=== PATIENT | female | born 1980 | race Caucasian/White ===

== ENCOUNTER 2016-05-02 20:39 | Emergency (ER) | payer OTHER ==
[2016-05-02] MEDS ORDERED: NORCO 5/325MG TABLET (BULK) As Ordered ONE (21:59)
--- NOTE | 2016-05-02 22:08 | EDDOCDS ---
Physician Documentation [facility] Name: Melita Keller Age: 36 yrs Sex: Female : 1980 Arrival Date: 05/02/2016 Time: 20:39 Bed TR1 Private MD: Odalis Simpson NP Disposition: 05/02/16 21:51 Discharged to Home/Self Care. Impression: Sprain of carpal joint of left wrist. - Condition is Stable. - Discharge Instructions: Wrist Pain, Wrist Splint. - Medication Reconciliation, Local Pharmacy Hours form. - Follow up: Darrell López; When: Call to arrange an appointment; Reason: Recheck today's complaints, Continuance of care. - Problem is new. - Symptoms are unchanged. Historical: - Allergies: no known allergies; - Home Meds: 1. Neprazol - PMHx: none; - PSHx: ovarian cyst removed; Gastric Bypass; - Social history: Smoking status: Patient states was never smoker of tobacco. No barriers to communication noted, The patient speaks fluent Estonian. - Family history: Not pertinent. - : The pt / caregiver states he / she is not on anticoagulants. Home medication list is obtained from the patient. - Exposure Risk Screening:: None identified. Vital Signs: 05/02 20:41 BP 132 / 60; Pulse 64; Resp 18; Temp 98.8; Pulse Ox 100% ; Weight 80.74 kg / 178 lbs; elp Height 5 ft. 7 in. (170.18 cm); Pain 8/10; 20:41 Body Mass Index 27.88 (80.74 kg, 170.18 cm) elp MDM: 21:06 Hand, Complete: please INCLUDE NAVICULAR VIEW Ordered. EDMS 21:51 HYDROcodone-acetaminophen 4 pack- 5 mg-325 mg 1 packets PO Per package directions; mo1 Dispense with patient. 1 po q4h prn for pain ordered. 21:56 Splint Affected Extremity ordered. mo1 Administered Medications: 22:05 Drug: HYDROcodone-acetaminophen 4 pack- 1 packets [hydrocodone 5 mg-acetaminophen 325 ld5 mg tablet (1 tabs)] {Co-Signature: [id number] (Soraya Bell RN).} Route: PO; 22:05 Follow up: Response: Med's dispensed home ld5 Signatures: Dispatcher [employer] EDMS Soosairaj,Glenys,RN RN rs3 Ita Long RN RN ld5 Jason Daily PA PA mo1 Soraya Bell RN ms18 MTDD
--- NOTE | 2016-05-02 22:08 | EDDOCDS ---
Nurse's Notes [facility] Name: Melita Keller Age: 36 yrs Sex: Female : 1980 Arrival Date: 05/02/2016 Time: 20:39 Bed TR1 Private MD: Odalis Simpson NP Diagnosis: Sprain of carpal joint of left wrist Presentation: 05/02 20:44 Presenting complaint: Patient states: Fell on ice yesterday injured L hand. Took rs3 Tylenol/applied ice.. pain radiating to fingers and forearm. Adult Sepsis Screening: The patient does not have new or worsening altered mentation. Patient's respiratory rate is less than 22. Systolic blood pressure is greater than 100. Patient has a qSOFA score of 0- Negative Sepsis Screen. Suicide/Homicide risk assessment- the patient denies having any suicidal and/or homicidal ideations and does not present with any other emotional, behavioral or mental health complaints. Status: Patient is not a claims service adjustor or dependent. Transition of care: patient was not received from another setting of care. 20:44 Acuity: KB Level 4 rs3 20:44 Method Of Arrival: Walkin/Carried/Asstd rs3 Triage Assessment: 20:47 General: Appears in no apparent distress. Pain: Location: left hand. Pt Declines HIV rs3 testing. Musculoskeletal: Reports Pain is 5 out of 10 on a pain scale. Historical: - Allergies: no known allergies; - Home Meds: 1. Neprazol - PMHx: none; - PSHx: ovarian cyst removed; Gastric Bypass; - Social history: Smoking status: Patient states was never smoker of tobacco. No barriers to communication noted, The patient speaks fluent Turkmen. - Family history: Not pertinent. - : The pt / caregiver states he / she is not on anticoagulants. Home medication list is obtained from the patient. - Exposure Risk Screening:: None identified. Screenin:05 Screening information is obtained from the patient. Fall risk: No risks identified. ld5 Assistance ADL's: requires no assistance with activities of daily living. Abuse/DV Screen: The patient / caregiver reports he/she is: not in a situation that causes fear, pain or injury. Nutritional screening: No deficits noted. Advance Directives: There is no active DNR order. home support is adequate. Assessment: 22:05 General: Appears in no apparent distress, Behavior is appropriate for age, cooperative, ld5 pleasant. Pain: Location: left hand. Neurological: Level of Consciousness is awake, alert. Respiratory: Airway is patent Respiratory effort is even, unlabored. Musculoskeletal: Range of motion intact in all extremities. Reports pain in left hand. Vital Signs: 20:41 BP 132 / 60; Pulse 64; Resp 18; Temp 98.8; Pulse Ox 100% ; Weight 80.74 kg; Height 5 elp ft. 7 in. (170.18 cm); Pain 8/10; 20:41 Body Mass Index 27.88 (80.74 kg, 170.18 cm) elp Vitals: 20:41 Log In Time: May 02, 2016 at 20:35. elp ED Course: 20:40 Patient visited by Dimple Hurst PCA. elp 20:40 Patient moved to Waiting elp 20:41 Odalis Simpson is Private Physician. elp 20:42 Patient visited by Dimple Hurst PCA. elp 20:42 Patient moved to Pre RCE elp 20:45 Triage Initiated rs3 20:48 Patient moved to I2 / M2 rs3 20:58 Jason Daily PA is PHCP. mo1 20:58 Shaqulile Paige DO is Attending Physician. mo1 21:05 Patient visited by Jason Daily PA. mo1 21:51 Darrell López is Referral Physician. mo1 21:57 Velcro wrist splint applied to left wrist. ct3 21:58 Patient visited by Mabel Day PCA. ct3 22:05 The patient / caregiver is instructed regarding the plan of care and ED course. Patient ld5 has correct armband on for positive identification. 22:05 No IV's were initiated during this patient's visit. No procedures done that require ld5 assistance. Velcro wrist splint applied to left wrist. Patient with positive distal sensation and brisk distal capillary refill after application. 22:07 Patient visited by Ita Long RN. ld5 22:07 Patient moved to TR1 ajs Administered Medications: 22:05 Drug: HYDROcodone-acetaminophen 4 pack- 1 packets [hydrocodone 5 mg-acetaminophen 325 ld5 mg tablet (1 tabs)] {Co-Signature: [id number] (Soraya Bell RN).} Route: PO; 22:05 Follow up: Response: Med's dispensed home ld5 Order Results: There are currently no results for this order. Outcome: 21:51 Discharge ordered by Provider. mo1 22:05 Discharge Assessment: Patient awake, alert and oriented x 3. No cognitive and/or ld5 functional deficits noted. Patient verbalized understanding of disposition instructions. patient administered narcotics - no. The following High Risk Discharge criteria are identified: None. Discharged to home ambulatory. Condition: stable. Discharge instructions given to patient, Instructed on discharge instructions, follow up and referral plans. medication usage, no driving heavy equipment, Demonstrated understanding of instructions, medications, Pt was receptive of discharge instructions/ teaching. No special radiology studies were completed. Property :Personal belongings accompany Pt. 22:07 Patient left the ED. ld5 Signatures: Glenys Schwartz,RN RN rs3 Ita Long RN RN ld5 Mabel Day, MIXER SLAGMAN MIXER SLAGMAN ct3 Lisa Hatch Michael, PA PA mo1 Dimple Hurst, MIXER SLAGMAN MIXER SLAGMAN elp Soraya Bell RN ms18 Corrections: (The following items were deleted from the chart) 20:42 20:41 BP 132 / 60; Pulse 64bpm; Resp 18bpm; elp elp MTDD
--- NOTE | 2016-05-03 01:00 | REP ---
Clinical: Trauma. Technique: AP, lateral, bilateral oblique views of the left hand with scaphoid view . Findings: The osseous structures and joint spaces are intact and normal. There is no evidence for acute fracture or dislocation. Surrounding soft tissues are unremarkable. No subcutaneous emphysema or radiodense foreign body. Impression: Normal examination. No acute fracture or dislocation. Signed by Cong Khan MD 05/03/2016 12:51 A
[2016-05-03] MEDS ORDERED: METOCLOPRAMIDE INJ 10MG/2ML VIAL (J2765) As Ordered ONE (07:39)
--- NOTE | 2016-05-04 23:08 | EDDOCDS ---
Physician Documentation [facility] Name: Melita Keller Age: 36 yrs Sex: Female : 1980 Arrival Date: 05/02/2016 Time: 20:39 Bed TR1 Private MD: Odalis Simpson NP Disposition: 05/02/16 21:51 Discharged to Home/Self Care. Impression: Sprain of carpal joint of left wrist. - Condition is Stable. - Discharge Instructions: Wrist Pain, Wrist Splint. - Medication Reconciliation, Local Pharmacy Hours form. - Follow up: Darrell López; When: Call to arrange an appointment; Reason: Recheck today's complaints, Continuance of care. - Problem is new. - Symptoms are unchanged. Historical: - Allergies: no known allergies; - Home Meds: 1. Neprazol - PMHx: none; - PSHx: ovarian cyst removed; Gastric Bypass; - Social history: Smoking status: Patient states was never smoker of tobacco. No barriers to communication noted, The patient speaks fluent Pashto. - Family history: Not pertinent. - : The pt / caregiver states he / she is not on anticoagulants. Home medication list is obtained from the patient. - Exposure Risk Screening:: None identified. Vital Signs: 05/02 20:41 BP 132 / 60; Pulse 64; Resp 18; Temp 98.8; Pulse Ox 100% ; Weight 80.74 kg / 178 lbs; elp Height 5 ft. 7 in. (170.18 cm); Pain 8/10; 20:41 Body Mass Index 27.88 (80.74 kg, 170.18 cm) elp MDM: 21:06 Hand, Complete: please INCLUDE NAVICULAR VIEW Ordered. EDMS 21:51 HYDROcodone-acetaminophen 4 pack- 5 mg-325 mg 1 packets PO Per package directions; mo1 Dispense with patient. 1 po q4h prn for pain ordered. 21:56 Splint Affected Extremity ordered. mo1 22:23 [facility] Payment Agreement was scanned into [employer] and attached to record. gjb 22:23 Financial registration complete. gjb 05/03 10:33 T-Sheet-- Draft Copy was scanned into [employer] and attached to record. gb Administered Medications: 05/02 22:05 Drug: HYDROcodone-acetaminophen 4 pack- 1 packets [hydrocodone 5 mg-acetaminophen 325 ld5 mg tablet (1 tabs)] {Co-Signature: [id number] (Soraya Bell RN).} Route: PO; 22:05 Follow up: Response: Med's dispensed home ld5 Signatures: Dispatcher [employer] EDNikia Brooks, Reg Reg gb Glenys Schwartz RN RN rs3 Ita Long RN RN ld5 Jason Daily PA PA mo1 Beck, Gabriela gjb Mallory Smith RN ms18 The chart was reviewed and I authenticate all verbal orders and agree with the evaluation and treatment provided.Attachments: 22:23 [facility] Payment Agreement gjb 05/03 10:33 T-Sheet-- Draft Copy gb Chart Complete MTDD
--- NOTE | 2016-05-04 23:08 | EDDOCDS ---
Physician Documentation [facility] Name: Melita Keller Age: 36 yrs Sex: Female : 1980 Arrival Date: 05/02/2016 Time: 20:39 Bed TR1 Private MD: Odalis Simpson NP Disposition: 05/02/16 21:51 Discharged to Home/Self Care. Impression: Sprain of carpal joint of left wrist. - Condition is Stable. - Discharge Instructions: Wrist Pain, Wrist Splint. - Medication Reconciliation, Local Pharmacy Hours form. - Follow up: Darrell López; When: Call to arrange an appointment; Reason: Recheck today's complaints, Continuance of care. - Problem is new. - Symptoms are unchanged. Historical: - Allergies: no known allergies; - Home Meds: 1. Neprazol - PMHx: none; - PSHx: ovarian cyst removed; Gastric Bypass; - Social history: Smoking status: Patient states was never smoker of tobacco. No barriers to communication noted, The patient speaks fluent Maltese. - Family history: Not pertinent. - : The pt / caregiver states he / she is not on anticoagulants. Home medication list is obtained from the patient. - Exposure Risk Screening:: None identified. Vital Signs: 05/02 20:41 BP 132 / 60; Pulse 64; Resp 18; Temp 98.8; Pulse Ox 100% ; Weight 80.74 kg / 178 lbs; elp Height 5 ft. 7 in. (170.18 cm); Pain 8/10; 20:41 Body Mass Index 27.88 (80.74 kg, 170.18 cm) elp MDM: 21:06 Hand, Complete: please INCLUDE NAVICULAR VIEW Ordered. EDMS 21:51 HYDROcodone-acetaminophen 4 pack- 5 mg-325 mg 1 packets PO Per package directions; mo1 Dispense with patient. 1 po q4h prn for pain ordered. 21:56 Splint Affected Extremity ordered. mo1 22:23 [facility] Payment Agreement was scanned into [employer] and attached to record. gjb 22:23 Financial registration complete. gjb 05/03 10:33 T-Sheet-- Draft Copy was scanned into [employer] and attached to record. gb Administered Medications: 05/02 22:05 Drug: HYDROcodone-acetaminophen 4 pack- 1 packets [hydrocodone 5 mg-acetaminophen 325 ld5 mg tablet (1 tabs)] {Co-Signature: [id number] (Soraya Bell RN).} Route: PO; 22:05 Follow up: Response: Med's dispensed home ld5 Signatures: Dispatcher [employer] EDNikia Brooks, Reg Reg gb Glenys Schwartz RN RN rs3 Ita Long RN RN ld5 Jason Daily PA PA mo1 Beck, Gabriela gjb Mallory Smith RN ms18 The chart was reviewed and I authenticate all verbal orders and agree with the evaluation and treatment provided.Attachments: 22:23 [facility] Payment Agreement gjb 05/03 10:33 T-Sheet-- Draft Copy gb Chart Complete MTDD
--- NOTE | 2016-05-04 23:08 | EDDOCDS ---
Nurse's Notes [facility] Name: Melita Keller Age: 36 yrs Sex: Female : 1980 Arrival Date: 05/02/2016 Time: 20:39 Bed TR1 Private MD: Odalis Simpson NP Diagnosis: Sprain of carpal joint of left wrist Presentation: 05/02 20:44 Presenting complaint: Patient states: Fell on ice yesterday injured L hand. Took rs3 Tylenol/applied ice.. pain radiating to fingers and forearm. Adult Sepsis Screening: The patient does not have new or worsening altered mentation. Patient's respiratory rate is less than 22. Systolic blood pressure is greater than 100. Patient has a qSOFA score of 0- Negative Sepsis Screen. Suicide/Homicide risk assessment- the patient denies having any suicidal and/or homicidal ideations and does not present with any other emotional, behavioral or mental health complaints. Status: Patient is not a customer service analyst or dependent. Transition of care: patient was not received from another setting of care. 20:44 Acuity: KB Level 4 rs3 20:44 Method Of Arrival: Walkin/Carried/Asstd rs3 Triage Assessment: 20:47 General: Appears in no apparent distress. Pain: Location: left hand. Pt Declines HIV rs3 testing. Musculoskeletal: Reports Pain is 5 out of 10 on a pain scale. Historical: - Allergies: no known allergies; - Home Meds: 1. Neprazol - PMHx: none; - PSHx: ovarian cyst removed; Gastric Bypass; - Social history: Smoking status: Patient states was never smoker of tobacco. No barriers to communication noted, The patient speaks fluent Montserratian. - Family history: Not pertinent. - : The pt / caregiver states he / she is not on anticoagulants. Home medication list is obtained from the patient. - Exposure Risk Screening:: None identified. Screenin:05 Screening information is obtained from the patient. Fall risk: No risks identified. ld5 Assistance ADL's: requires no assistance with activities of daily living. Abuse/DV Screen: The patient / caregiver reports he/she is: not in a situation that causes fear, pain or injury. Nutritional screening: No deficits noted. Advance Directives: There is no active DNR order. home support is adequate. Assessment: 22:05 General: Appears in no apparent distress, Behavior is appropriate for age, cooperative, ld5 pleasant. Pain: Location: left hand. Neurological: Level of Consciousness is awake, alert. Respiratory: Airway is patent Respiratory effort is even, unlabored. Musculoskeletal: Range of motion intact in all extremities. Reports pain in left hand. Vital Signs: 20:41 BP 132 / 60; Pulse 64; Resp 18; Temp 98.8; Pulse Ox 100% ; Weight 80.74 kg; Height 5 elp ft. 7 in. (170.18 cm); Pain 8/10; 20:41 Body Mass Index 27.88 (80.74 kg, 170.18 cm) elp Vitals: 20:41 Log In Time: May 02, 2016 at 20:35. elp ED Course: 20:40 Patient visited by Dimple Hurst PCA. elp 20:40 Patient moved to Waiting elp 20:41 Odalis Simpson is Private Physician. elp 20:42 Patient visited by Dimple Hurst PCA. elp 20:42 Patient moved to Pre RCE elp 20:45 Triage Initiated rs3 20:48 Patient moved to I2 / M2 rs3 20:58 Jason Daily PA is PHCP. mo1 20:58 Shaquille Paige DO is Attending Physician. mo1 21:05 Patient visited by Jason Daily PA. mo1 21:51 Darrell López is Referral Physician. mo1 21:57 Velcro wrist splint applied to left wrist. ct3 21:58 Patient visited by Mabel Day PCA. ct3 22:05 The patient / caregiver is instructed regarding the plan of care and ED course. Patient ld5 has correct armband on for positive identification. 22:05 No IV's were initiated during this patient's visit. No procedures done that require ld5 assistance. Velcro wrist splint applied to left wrist. Patient with positive distal sensation and brisk distal capillary refill after application. 22:07 Patient visited by Ita Long RN. ld5 22:07 Patient moved to TR1 [facility] 22:23 [facility] Payment Agreement was scanned into [employer] and attached to record. gjb 05/03 01:07 Hand, Complete: please INCLUDE NAVICULAR VIEW Returned. EDMS 10:33 T-Sheet-- Draft Copy was scanned into [employer] and attached to record. gb Administered Medications: 05/02 22:05 Drug: HYDROcodone-acetaminophen 4 pack- 1 packets [hydrocodone 5 mg-acetaminophen 325 ld5 mg tablet (1 tabs)] {Co-Signature: [id number] (Soraya Bell RN).} Route: PO; 22:05 Follow up: Response: Med's dispensed home ld5 Order Results: Radiology Order: Hand, Complete: please INCLUDE NAVICULAR VIEW Test: Hand, Complete: please INCLUDE NAVICULAR VIEW REASON FOR EXAMINATION: Trauma; Clinical: Trauma.; ; Technique: AP, lateral, bilateral oblique views of the left hand with scaphoid; view .; ; Findings: The osseous structures and joint spaces are intact and normal. There; is no evidence for acute fracture or dislocation. Surrounding soft tissues are; unremarkable. No subcutaneous emphysema or radiodense foreign body.; ; Impression:; Normal examination. No acute fracture or dislocation.; ; ; Signed by; Cong Khan MD 05/03/2016 12:51 A; Outcome: 21:51 Discharge ordered by Provider. mo1 22:05 Discharge Assessment: Patient awake, alert and oriented x 3. No cognitive and/or ld5 functional deficits noted. Patient verbalized understanding of disposition instructions. patient administered narcotics - no. The following High Risk Discharge criteria are identified: None. Discharged to home ambulatory. Condition: stable. Discharge instructions given to patient, Instructed on discharge instructions, follow up and referral plans. medication usage, no driving heavy equipment, Demonstrated understanding of instructions, medications, Pt was receptive of discharge instructions/ teaching. No special radiology studies were completed. Property :Personal belongings accompany Pt. 22:07 Patient left the ED. ld5 Signatures: Dispatcher [employer] EDMS Nikia Paez, Reg Reg gb Glenys SchwartzRN RN rs3 Ita Long RN RN ld5 Mabel Day, LABEL PASTER LABEL PASTER ct3 Lisa Hatch Michael, PA PA mo1 Dimple Hurst, LABEL PASTER LABEL PASTER elp Paris Johnson RN ms18 Corrections: (The following items were deleted from the chart) 20:42 20:41 BP 132 / 60; Pulse 64bpm; Resp 18bpm; elp elp Chart Complete MTDD
== END 2016-05-02 22:07 | disposition home or self-care (01) ==
LOC: M ED 20:39
DX: S63.512A Sprain of carpal joint of left wrist, initial encounter (principal); W19.XXXA Unspecified fall, initial encounter; Y92.019 Unspecified place in single-family (private) house as the place of occurrence of the external cause; Y93.89 Activity, other specified; Y99.8 Other external cause status; Z98.84 Bariatric surgery status; Z79.899 Other long term (current) drug therapy

== ENCOUNTER → 2016-05-10 | Outpatient (REF) | payer OTHER | LOC: M SFHCPLAZ 17:00 | PROVIDERS: ATTEND Family Medicine | DX: L57.0 Actinic keratosis (principal) ==

== ENCOUNTER → 2016-07-11 | Outpatient (REF) | payer OTHER ==
[2016-07-11 13:05] LABS: MEAN CORPUSCULAR HGB CONC 32.1 g/dl (32.0-36.5); MEAN CORPUSCULAR VOLUME 96.6 fl (80.0-96.0); RED CELL DISTRIBUTION WIDTH 12.8 % (11.5-14.5); WHITE BLOOD COUNT 4.3 K/mm3 (4.0-10.0)
[2016-07-11 13:14] LABS: VITAMIN B12 LEVEL 593 PG/ML
[2016-07-11 13:15] LABS: FOLATE 6.9 NG/ML
[2016-07-11 13:24] LABS: ALBUMIN 3.3 GM/DL (3.2-5.2); ALBUMIN/GLOBULIN RATIO 1.06 (1.00-1.93); ALKALINE PHOSPHATASE 88 U/L (45-117); ALT/SGPT 31 U/L (12-78); ANION GAP 4 MEQ/L (8-16); AST/SGOT 24 U/L (15-37); BILIRUBIN,TOTAL 0.5 MG/DL (0.2-1.0); BLOOD UREA NITROGEN 13 MG/DL (7-18); CALCIUM LEVEL 8.7 MG/DL (8.5-10.1); CARBON DIOXIDE LEVEL 31 MEQ/L (21-32); CHLORIDE LEVEL 108 MEQ/L (98-107); CREATININE FOR GFR 0.68 MG/DL (0.55-1.02); FREE T4 0.78 NG/DL (0.76-1.46); GLOMERULAR FILTRATION RATE > 60.0 (>60); GLUCOSE, FASTING 68 MG/DL (70-105); POTASSIUM SERUM 4.3 MEQ/L (3.5-5.1); SODIUM LEVEL 143 MEQ/L (136-145); TOTAL PROTEIN 6.4 GM/DL (6.4-8.2)
== END ==
LOC: M SFHCPLAZ 08:12
PROVIDERS: ATTEND Nurse Practitioner Family
DX: E53.8 Deficiency of other specified B group vitamins (principal); F41.9 Anxiety disorder, unspecified; E55.9 Vitamin D deficiency, unspecified

== ENCOUNTER → 2017-10-23 | Outpatient (REF) | payer OTHER ==
[2017-10-23 17:30] LABS: FOLATE 14.2 NG/ML; VITAMIN B12 LEVEL 637 PG/ML
[2017-10-23 17:36] LABS: ALBUMIN 3.5 GM/DL (3.2-5.2); ALBUMIN/GLOBULIN RATIO 1.03 (1.00-1.93); ALKALINE PHOSPHATASE 81 U/L (45-117); ALT/SGPT 17 U/L (12-78); ANION GAP 6 MEQ/L (8-16); AST/SGOT 11 U/L (7-37); BILIRUBIN,TOTAL 0.4 MG/DL (0.2-1.0); BLOOD UREA NITROGEN 11 MG/DL (7-18); CALCIUM LEVEL 8.4 MG/DL (8.5-10.1); CARBON DIOXIDE LEVEL 28 MEQ/L (21-32); CHLORIDE LEVEL 108 MEQ/L (98-107); CREATININE FOR GFR 0.72 MG/DL (0.55-1.30); FERRITIN 8 NG/ML (8-252); FREE T4 0.81 NG/DL (0.76-1.46); GLOMERULAR FILTRATION RATE > 60.0 (>60); GLUCOSE, FASTING 86 MG/DL (70-100); POTASSIUM SERUM 4.1 MEQ/L (3.5-5.1); SODIUM LEVEL 142 MEQ/L (136-145); THYROID STIMULATING HORMONE 0.637 uIU/ML (0.358-3.740); TOTAL PROTEIN 6.9 GM/DL (6.4-8.2)
[2017-10-23 18:14] LABS: HEMATOCRIT 38.3 % (36.0-47.0); HEMOGLOBIN 12.6 g/dl (12.0-15.5); MEAN CORPUSCULAR HEMOGLOBIN 30.2 pg (27.0-33.0); MEAN CORPUSCULAR HGB CONC 32.9 g/dl (32.0-36.5); MEAN CORPUSCULAR VOLUME 91.8 fl (80.0-96.0); PLATELET COUNT, AUTOMATED 271 10^3/uL (150-450); RED BLOOD COUNT 4.17 10^6/uL (4.00-5.40); WHITE BLOOD COUNT 5.9 10^3/uL (4.0-10.0)
[2017-10-23 18:15] LABS: TOTAL 25(OH) VITAMIN D 15.4 NG/ML (30.0-100.0)
== END ==
LOC: M SFHCPLAZ 15:17
DX: E66.9 Obesity, unspecified (principal); E55.9 Vitamin D deficiency, unspecified; E53.8 Deficiency of other specified B group vitamins; Z98.84 Bariatric surgery status
CPT/HCPCS: 82746

== ENCOUNTER → 2018-06-03 | Outpatient (CLI) | payer OTHER ==
[2018-06-03 20:54] LABS: ALBUMIN 3.6 GM/DL (3.2-5.2); ALT/SGPT 19 U/L (12-78); BILIRUBIN,TOTAL 0.3 MG/DL (0.2-1.0); BLOOD UREA NITROGEN 13 MG/DL (7-18); CALCIUM LEVEL 7.8 MG/DL (8.5-10.1); CARBON DIOXIDE LEVEL 22 MEQ/L (21-32); CHLORIDE LEVEL 111 MEQ/L (98-107); CREATININE FOR GFR 0.68 MG/DL (0.55-1.30); FERRITIN 8 NG/ML (8-252); FOLATE 10.7 NG/ML (>5.4); GLOMERULAR FILTRATION RATE > 60.0 (>60); GLUCOSE, FASTING 72 MG/DL (70-100); SODIUM LEVEL 142 MEQ/L (136-145); TOTAL 25(OH) VITAMIN D 16.4 NG/ML (30.0-100.0); TOTAL PROTEIN 6.6 GM/DL (6.4-8.2); VITAMIN B12 LEVEL 544 PG/ML (247-911)
== END ==
LOC: M WUC 17:44
PROVIDERS: ATTEND Nurse Practitioner Family
DX: E55.9 Vitamin D deficiency, unspecified (principal); E53.8 Deficiency of other specified B group vitamins; Z98.84 Bariatric surgery status

== ENCOUNTER → 2018-12-23 | Outpatient (CLI) | payer OTHER ==
[2018-12-23 20:19] LABS: TOTAL 25(OH) VITAMIN D 18.8 NG/ML (30.0-100.0)
== END ==
LOC: M WUC 18:01
PROVIDERS: ATTEND Nurse Practitioner Family
DX: Z98.84 Bariatric surgery status (principal); E55.9 Vitamin D deficiency, unspecified

== ENCOUNTER → 2019-04-01 | Outpatient (REF) | payer OTHER ==
[2019-04-01 11:07] LABS: HEMATOCRIT 42.7 % (36.0-47.0); HEMOGLOBIN 13.1 g/dl (12.0-15.5); MEAN CORPUSCULAR HEMOGLOBIN 29.3 pg (27.0-33.0); MEAN CORPUSCULAR HGB CONC 30.7 g/dl (32.0-36.5); MEAN CORPUSCULAR VOLUME 95.5 fl (80.0-96.0); PLATELET COUNT, AUTOMATED 246 10^3/uL (150-450); RED BLOOD COUNT 4.47 10^6/uL (4.00-5.40); WHITE BLOOD COUNT 4.5 10^3/uL (4.0-10.0)
[2019-04-01 12:40] LABS: TOTAL 25(OH) VITAMIN D 19.5 NG/ML (30.0-100.0)
[2019-04-01 12:41] LABS: FOLATE 7.6 NG/ML
== END ==
LOC: M SFHCPLAZ 08:32
PROVIDERS: ATTEND Nurse Practitioner Family
DX: E53.8 Deficiency of other specified B group vitamins (principal); Z98.84 Bariatric surgery status; E55.9 Vitamin D deficiency, unspecified

== ENCOUNTER → 2019-10-19 | Outpatient (CLI) | payer OTHER ==
[2019-10-19 17:35] LABS: ALBUMIN 3.5 GM/DL (3.2-5.2); ALT/SGPT 17 U/L (12-78); BILIRUBIN,TOTAL 0.5 MG/DL (0.2-1.0); BLOOD UREA NITROGEN 11 MG/DL (7-18); CALCIUM LEVEL 8.7 MG/DL (8.5-10.1); CARBON DIOXIDE LEVEL 28 MEQ/L (21-32); CHLORIDE LEVEL 110 MEQ/L (98-107); CREATININE FOR GFR 0.68 MG/DL (0.55-1.30); FERRITIN 8 NG/ML (8-252); GLOMERULAR FILTRATION RATE > 60.0 (>60); GLUCOSE, FASTING 63 MG/DL (70-100); POTASSIUM SERUM 4.5 MEQ/L (3.5-5.1); SODIUM LEVEL 138 MEQ/L (136-145); TOTAL PROTEIN 6.4 GM/DL (6.4-8.2)
[2019-10-20 10:18] LABS: FOLATE 8.2 NG/ML; TOTAL 25(OH) VITAMIN D 17.1 NG/ML (30.0-100.0); VITAMIN B12 LEVEL 229 PG/ML
== END ==
LOC: M WUC 10:35
PROVIDERS: ATTEND Nurse Practitioner Family
DX: G47.8 Other sleep disorders (principal); E55.9 Vitamin D deficiency, unspecified; E53.8 Deficiency of other specified B group vitamins; Z98.84 Bariatric surgery status

== ENCOUNTER → 2020-01-20 | Outpatient (REF) | payer OTHER ==
[2020-01-20 15:49] LABS: BASO % 0.5 % (0.0-1.0); EOS % 0.5 % (0.0-3.0); HEMATOCRIT 39.7 % (36.0-47.0); HEMOGLOBIN 12.3 g/dl (12.0-15.5); LYMPH # 2.2 10^3/uL (1.5-5.0); LYMPH % 51.5 % (24.0-44.0); MEAN CORPUSCULAR HEMOGLOBIN 29.2 pg (27.0-33.0); MEAN CORPUSCULAR VOLUME 94.3 fl (80.0-96.0); MONO # 0.3 10^3/uL (0.0-0.8); MONO % 7.4 % (0.0-5.0); NEUTROPHILS # 1.7 10^3/uL (1.5-8.5); NEUTROPHILS % 39.9 % (36.0-66.0); PLATELET COUNT, AUTOMATED 280 10^3/uL (150-450); RED BLOOD COUNT 4.21 10^6/uL (4.00-5.40); WHITE BLOOD COUNT 4.2 10^3/uL (4.0-10.0)
[2020-01-20 15:58] LABS: ALBUMIN 3.7 GM/DL (3.2-5.2); ALT/SGPT 19 U/L (12-78); BILIRUBIN,TOTAL 0.6 MG/DL (0.2-1.0); BLOOD UREA NITROGEN 15 MG/DL (7-18); CALCIUM LEVEL 8.5 MG/DL (8.5-10.1); CARBON DIOXIDE LEVEL 28 MEQ/L (21-32); CHLORIDE LEVEL 108 MEQ/L (98-107); CREATININE FOR GFR 0.75 MG/DL (0.55-1.30); FERRITIN 7 NG/ML (8-252); GLOMERULAR FILTRATION RATE > 60.0 (>60); GLUCOSE, FASTING 64 MG/DL (70-100); POTASSIUM SERUM 4.5 MEQ/L (3.5-5.1); SODIUM LEVEL 141 MEQ/L (136-145); TOTAL PROTEIN 6.7 GM/DL (6.4-8.2)
[2020-01-20 16:05] LABS: TOTAL 25(OH) VITAMIN D 25.2 NG/ML (30.0-100.0); VITAMIN B12 LEVEL 358 PG/ML
[2020-01-28 23:11] LABS: Methylmalonic Acid 335 nmol/L (0-378)
== END ==
LOC: M SFHCPLAZ 11:27
PROVIDERS: ATTEND Nurse Practitioner Family
DX: E61.1 Iron deficiency (principal); G47.8 Other sleep disorders; E53.8 Deficiency of other specified B group vitamins; E55.9 Vitamin D deficiency, unspecified

== ENCOUNTER → 2020-08-10 | Outpatient (REF) | payer OTHER ==
[2020-08-10 13:53] LABS: HEMATOCRIT 40.9 % (36.0-47.0); HEMOGLOBIN 12.8 g/dl (12.0-15.5); MEAN CORPUSCULAR HGB CONC 31.3 g/dl (32.0-36.5); MEAN CORPUSCULAR VOLUME 92.7 fl (80.0-96.0); PLATELET COUNT, AUTOMATED 275 10^3/uL (150-450); RED BLOOD COUNT 4.41 10^6/uL (4.00-5.40); WHITE BLOOD COUNT 4.6 10^3/uL (4.0-10.0)
[2020-08-10 14:45] LABS: FOLATE 12.9 NG/ML; TOTAL 25(OH) VITAMIN D 31.4 NG/ML (30.0-100.0)
== END ==
LOC: M PLALAB 11:07
PROVIDERS: ATTEND Nurse Practitioner Family
DX: E61.1 Iron deficiency (principal); E55.9 Vitamin D deficiency, unspecified; E53.8 Deficiency of other specified B group vitamins

== ENCOUNTER → 2021-09-04 | Outpatient (CLI) | payer BC, OTHER ==
[2021-09-04 16:14] LABS: BASO % 0.4 % (0.0-1.0); EOS % 0.6 % (0.0-3.0); HEMATOCRIT 40.2 % (36.0-47.0); HEMOGLOBIN 12.3 g/dl (12.0-15.5); LYMPH % 40.4 % (24.0-44.0); MEAN CORPUSCULAR HEMOGLOBIN 28.4 pg (27.0-33.0); MEAN CORPUSCULAR HGB CONC 30.6 g/dl (32.0-36.5); MEAN CORPUSCULAR VOLUME 92.8 fl (80.0-96.0); MONO # 0.3 10^3/uL (0.0-0.8); MONO % 6.5 % (2.0-8.0); NEUTROPHILS # 2.6 10^3/uL (1.5-8.5); NEUTROPHILS % 51.7 % (36.0-66.0); PLATELET COUNT, AUTOMATED 309 10^3/uL (150-450); RED BLOOD COUNT 4.33 10^6/uL (4.00-5.40)
[2021-09-04 16:52] LABS: ALBUMIN 3.4 GM/DL (3.2-5.2); ALT/SGPT 18 U/L (12-78); BILIRUBIN,TOTAL 0.4 MG/DL (0.2-1.0); BLOOD UREA NITROGEN 13 MG/DL (7-18); CALCIUM LEVEL 8.2 MG/DL (8.5-10.1); CARBON DIOXIDE LEVEL 23 MEQ/L (21-32); CHLORIDE LEVEL 113 MEQ/L (98-107); CHOLESTEROL LEVEL 151 MG/DL (<200); CHOLESTEROL RISK RATIO 2.188 (<5); CREATININE FOR GFR 0.83 MG/DL (0.55-1.30); FERRITIN 8 NG/ML (8-252); FREE T4 0.72 NG/DL (0.76-1.46); GLOMERULAR FILTRATION RATE > 60.0 (>60); GLUCOSE, FASTING 49 MG/DL (70-100); HDL CHOLESTEROL 69 MG/DL (>40); IRON (FE) 61 UG/DL (50-170); LDL CHOLESTEROL 62 MG/DL (<100); NON-HDL-C 82 MG/DL; SODIUM LEVEL 141 MEQ/L (136-145); THYROID STIMULATING HORMONE 0.278 uIU/ML (0.358-3.740); TOTAL 25(OH) VITAMIN D 21.2 NG/ML (30.0-100.0); TOTAL PROTEIN 6.7 GM/DL (6.4-8.2); TRIGLYCERIDES LEVEL 99 MG/DL (<150); VITAMIN B12 LEVEL 343 PG/ML (247-911)
[2021-09-04 19:21] LABS: HEMOGLOBIN A1c 4.7 %
== END ==
LOC: M WUC 10:59
PROVIDERS: ATTEND Nurse Practitioner Family
DX: Z98.84 Bariatric surgery status (principal); E55.9 Vitamin D deficiency, unspecified; E53.8 Deficiency of other specified B group vitamins; F41.9 Anxiety disorder, unspecified; Z13.1 Encounter for screening for diabetes mellitus; Z13.220 Encounter for screening for lipoid disorders

== ENCOUNTER → 2021-09-27 | Outpatient (CLI) | payer BC, OTHER ==
[2021-09-27 15:17] LABS: ALBUMIN 3.6 GM/DL (3.2-5.2); ALT/SGPT 17 U/L (12-78); BILIRUBIN,TOTAL 0.5 MG/DL (0.2-1.0); BLOOD UREA NITROGEN 14 MG/DL (7-18); CALCIUM LEVEL 8.7 MG/DL (8.5-10.1); CARBON DIOXIDE LEVEL 24 MEQ/L (21-32); CHLORIDE LEVEL 111 MEQ/L (98-107); CHOLESTEROL LEVEL 166 MG/DL (<200); CHOLESTEROL RISK RATIO 2.075 (<5); CREATININE FOR GFR 0.81 MG/DL (0.55-1.30); FERRITIN 6 NG/ML (8-252); GLOMERULAR FILTRATION RATE > 60.0 (>60); GLUCOSE, FASTING 78 MG/DL (70-100); HDL CHOLESTEROL 80 MG/DL (>40); IRON (FE) 60 UG/DL (50-170); LDL CHOLESTEROL 73 MG/DL (<100); NON-HDL-C 86 MG/DL; PERCENT SATURATION 14.2 % (13.2-45.0); POTASSIUM SERUM 3.9 MEQ/L (3.5-5.1); SODIUM LEVEL 140 MEQ/L (136-145); TOTAL IRON BINDING CAPACITY 423 UG/DL (250-450); TOTAL PROTEIN 6.9 GM/DL (6.4-8.2); TRIGLYCERIDES LEVEL 66 MG/DL (<150)
[2021-09-27 15:39] LABS: TOTAL 25(OH) VITAMIN D 24.6 NG/ML (30.0-100.0)
[2021-09-27 15:40] LABS: FOLATE 9.9 NG/ML (>5.4); VITAMIN B12 LEVEL 266 PG/ML (247-911)
== END ==
LOC: M LAB 13:27
PROVIDERS: ATTEND Registered Nurse
DX: Z98.84 Bariatric surgery status (principal)

== ENCOUNTER → 2021-11-01 | Outpatient (CLI) | payer BC, OTHER | LOC: M WHC 12:32 | PROVIDERS: ATTEND Registered Nurse | DX: Z98.84 Bariatric surgery status (principal) ==

== ENCOUNTER → 2021-12-25 | Outpatient (REF) | payer OTHER | LOC: M PLALAB 12:47 | PROVIDERS: ATTEND Obstetrics & Gynecology | DX: Z12.4 Encounter for screening for malignant neoplasm of cervix (principal) | CPT/HCPCS: 87624; G0123 ==

== ENCOUNTER → 2022-04-11 | Outpatient (CLI) | payer BC, OTHER | LOC: M WHC 11:04 | PROVIDERS: ATTEND Nurse Practitioner Family | DX: Z12.31 Encounter for screening mammogram for malignant neoplasm of breast (principal) ==

== ENCOUNTER → 2023-02-11 | Outpatient (CLI) | payer BC, OTHER ==
[2023-02-11 13:26] LABS: BASO % 0.5 % (0.0-1.0); EOS % 0.7 % (0.0-3.0); HEMATOCRIT 37.3 % (36.0-47.0); HEMOGLOBIN 11.7 g/dl (12.0-15.5); LYMPH % 35.8 % (24.0-44.0); MEAN CORPUSCULAR HGB CONC 31.4 g/dl (32.0-36.5); MEAN CORPUSCULAR VOLUME 92.3 fl (80.0-96.0); MONO # 0.3 10^3/uL (0.0-0.8); MONO % 5.3 % (2.0-8.0); NEUTROPHILS # 3.2 10^3/uL (1.5-8.5); NEUTROPHILS % 57.5 % (36.0-66.0); PLATELET COUNT, AUTOMATED 299 10^3/uL (150-450); RED BLOOD COUNT 4.04 10^6/uL (4.00-5.40); WHITE BLOOD COUNT 5.6 10^3/uL (4.0-10.0)
[2023-02-11 13:35] LABS: FREE T4 0.82 NG/DL (0.89-1.76); THYROID STIMULATING HORMONE 0.982 uIU/ML (0.55-4.78)
[2023-02-11 13:36] LABS: ALBUMIN 3.4 G/DL (3.2-5.2); ALKALINE PHOSPHATASE 89 U/L (46-116); ALT/SGPT 22 U/L (7.0-40); AST/SGOT 21 U/L (<34); BILIRUBIN,TOTAL 0.4 MG/DL (0.3-1.2); BLOOD UREA NITROGEN 15 MG/DL (9-23); CALCIUM LEVEL 8.4 MG/DL (8.5-10.1); CARBON DIOXIDE LEVEL 29 MMOL/L (20-31); CHLORIDE LEVEL 110 MMOL/L (98-107); CHOLESTEROL LEVEL 164 MG/DL (<200); CHOLESTEROL RISK RATIO 1.98 (<5); CREATININE FOR GFR 0.66 MG/DL (0.55-1.30); GLOMERULAR FILTRATION RATE > 60.0 (>58); GLUCOSE, FASTING 85 MG/DL (60-100); HDL CHOLESTEROL 82.6 MG/DL (>40); LDL CHOLESTEROL 70.6 MG/DL (<100); NON-HDL-C 81.4 MG/DL; POTASSIUM SERUM 4.4 MMOL/L (3.5-5.1); SODIUM LEVEL 142 MMOL/L (136-145); TOTAL PROTEIN 6.4 G/DL (5.7-8.2); TRIGLYCERIDES LEVEL 54 MG/DL (<150)
[2023-02-11 13:37] LABS: TOTAL 25(OH) VITAMIN D 20.1 NG/ML (20.0-100.0)
== END ==
LOC: M PLALAB 09:16
PROVIDERS: ATTEND Nurse Practitioner Family
DX: E55.9 Vitamin D deficiency, unspecified (principal); Z13.220 Encounter for screening for lipoid disorders; F41.9 Anxiety disorder, unspecified; Z98.84 Bariatric surgery status

== ENCOUNTER → 2023-05-22 | Outpatient (CLI) | payer BC, OTHER | LOC: M WHC 09:57 | PROVIDERS: ATTEND Physician Assistant Medical | DX: Z12.31 Encounter for screening mammogram for malignant neoplasm of breast (principal) ==

== ENCOUNTER → 2023-05-22 | Outpatient (CLI) | payer BC, OTHER ==
[2023-05-22 15:50] LABS: CALCIUM LEVEL 8.7 MG/DL (8.5-10.1)
[2023-05-22 15:58] LABS: PTH INTACT 93.2 PG/ML (18.5-88.0)
[2023-05-22 16:00] LABS: TOTAL 25(OH) VITAMIN D 21.3 NG/ML (20.0-100.0)
== END ==
LOC: M PLALAB 10:45
PROVIDERS: ATTEND Physician Assistant Medical
DX: E55.9 Vitamin D deficiency, unspecified (principal)

== ENCOUNTER → 2023-06-03 | Outpatient (CLI) | payer BC, OTHER | LOC: M WHC 14:17 | PROVIDERS: ATTEND Physician Assistant Medical | DX: Z12.39 Encounter for other screening for malignant neoplasm of breast (principal) ==

== ENCOUNTER → 2023-12-26 | Outpatient (REF) | payer OTHER, BC ==
[2023-12-29 08:34] LABS: APPEARANCE, URINE CLEAR (CLEAR); COLOR, URINE STRAW (YELLOW)
[2023-12-29 08:35] LABS: BILIRUBIN, URINE AUTO NEGATIVE (NEGATIVE); BLOOD, URINE BLOOD 2+ (NEGATIVE); GLUCOSE, URINE (UA) AUTO NEGATIVE (NEGATIVE); KETONE, URINE AUTO NEGATIVE (NEGATIVE); LEUKOCYTE ESTERASE, URINE AUTO TRACE (NEGATIVE); NITRITE, URINE AUTO NEGATIVE (NEGATIVE); PROTEIN, URINE AUTO NEGATIVE (NEGATIVE); SPECIFIC GRAVITY URINE AUTO 1.004 (1.002-1.035); UROBILINOGEN, URINE AUTO 0.2 mg/dL (0.0-2.0); WBC, URINE AUTO 3 /HPF (0-3)
[2023-12-29 08:36] LABS: BACTERIA, URINE AUTO 1+ (NEGATIVE); RBC, URINE AUTO 1 /HPF (0-3); SQUAMOUS EPITHELIAL CELL UR AU 1 /HPF (0-6)
== END ==
LOC: M LAB REF 08:29
PROVIDERS: ATTEND Physician Assistant
DX: N39.0 Urinary tract infection, site not specified (principal)

== ENCOUNTER → 2024-01-27 | Outpatient (CLI) | payer OTHER ==
[2024-01-27 13:56] LABS: HEMATOCRIT 40.4 % (36.0-47.0)
[2024-01-27 14:21] LABS: FREE T4 1.11 NG/DL (0.89-1.76); IRON (FE) 52 UG/DL (50-170); THYROID STIMULATING HORMONE 1.043 uIU/ML (0.55-4.78)
[2024-01-27 14:22] LABS: ALBUMIN 3.5 G/DL (3.2-5.2); ALKALINE PHOSPHATASE 88 U/L (35-104); ALT/SGPT 11 U/L (7.0-40); AST/SGOT 10 U/L (<34); BILIRUBIN,TOTAL 0.4 MG/DL (0.3-1.2); BLOOD UREA NITROGEN 14 MG/DL (9-23); CALCIUM LEVEL 9.5 MG/DL (8.5-10.1); CARBON DIOXIDE LEVEL 29 MMOL/L (20-31); CHLORIDE LEVEL 109 MMOL/L (98-107); CREATININE FOR GFR 0.69 MG/DL (0.55-1.30); GLOMERULAR FILTRATION RATE > 60.0 (>58); GLUCOSE, FASTING 79 MG/DL (60-100); POTASSIUM SERUM 4.5 MMOL/L (3.5-5.1); SODIUM LEVEL 140 MMOL/L (136-145); TOTAL PROTEIN 6.9 G/DL (5.7-8.2)
[2024-01-27 14:23] LABS: FERRITIN 6.5 NG/ML (7.3-270.7); TOTAL 25(OH) VITAMIN D 25.1 NG/ML (20.0-100.0)
[2024-01-27 14:24] LABS: VITAMIN B12 LEVEL 353 PG/ML (211-911)
== END ==
LOC: M PLALAB 11:20
PROVIDERS: ATTEND Physician Assistant Medical
DX: E55.9 Vitamin D deficiency, unspecified (principal)

== ENCOUNTER → 2024-03-04 | Outpatient (CLI) | payer BC ==
[2024-03-04 17:13] LABS: INR 0.96; PARTIAL THROMBOPLASTIN TIME 27.3 SECONDS (24.8-34.2); PROTHROMBIN TIME 13.1 SECONDS (12.5-14.5)
[2024-03-04 17:21] LABS: ALBUMIN 3.5 G/DL (3.2-5.2); ALKALINE PHOSPHATASE 92 U/L (35-104); ALT/SGPT 11 U/L (7.0-40); AST/SGOT 12 U/L (<34); BILIRUBIN,TOTAL 0.5 MG/DL (0.3-1.2); BLOOD UREA NITROGEN 15 MG/DL (9-23); CALCIUM LEVEL 9.4 MG/DL (8.5-10.1); CARBON DIOXIDE LEVEL 29 MMOL/L (20-31); CHLORIDE LEVEL 104 MMOL/L (98-107); CREATININE FOR GFR 0.69 MG/DL (0.55-1.30); GLOMERULAR FILTRATION RATE > 60.0 (>58); GLUCOSE, FASTING 83 MG/DL (60-100); IRON (FE) 135 UG/DL (50-170); POTASSIUM SERUM 4.7 MMOL/L (3.5-5.1); PTH INTACT 118.2 PG/ML (18.5-88.0); SODIUM LEVEL 140 MMOL/L (136-145)
[2024-03-04 17:22] LABS: FERRITIN 8.6 NG/ML (7.3-270.7)
[2024-03-04 17:23] LABS: BASO % 0.4 % (0.0-1.0); EOS % 0.6 % (0.0-3.0); HEMATOCRIT 40.6 % (36.0-47.0); HEMOGLOBIN 12.8 g/dl (12.0-15.5); LYMPH # 1.9 10^3/uL (1.5-5.0); LYMPH % 36.4 % (24.0-44.0); MEAN CORPUSCULAR HEMOGLOBIN 27.2 pg (27.0-33.0); MEAN CORPUSCULAR HGB CONC 31.5 g/dl (32.0-36.5); MEAN CORPUSCULAR VOLUME 86.4 fl (80.0-96.0); MONO # 0.3 10^3/uL (0.0-0.8); MONO % 5.8 % (2.0-8.0); NEUTROPHILS # 2.9 10^3/uL (1.5-8.5); NEUTROPHILS % 56.4 % (36.0-66.0); PLATELET COUNT, AUTOMATED 296 10^3/uL (150-450); VITAMIN B12 LEVEL 340 PG/ML (211-911); WHITE BLOOD COUNT 5.1 10^3/uL (4.0-10.0)
[2024-03-04 17:24] LABS: FREE T4 1.11 NG/DL (0.89-1.76)
[2024-03-04 17:46] LABS: HEMOGLOBIN A1c 4.7 % (4.0-6.0)
== END ==
LOC: M PLALAB 14:38
PROVIDERS: ATTEND Physician Assistant Medical
DX: Z98.84 Bariatric surgery status (principal); E55.9 Vitamin D deficiency, unspecified; E61.1 Iron deficiency

== ENCOUNTER 2024-03-10 11:08 | Outpatient (CLI) | payer BC ==
[~2024-03-10] VITALS: Ht 170.2 cm; Wt 90.9 kg
[~2024-03-10 11:08] MED LIST: ACETAMINOPHEN 650 MG PO ONE; ALBUTEROL SULFATE 2.5MG/0.5ML INH NEB SOLN INH PRN; EPINEPHrine INJ 1 MG/ML 1ML AMP IM PRN; diphenhydrAMINE 25MG CAP PO ONE; diphenhydrAMINE 50MG/ML VIAL IV PRN; methylPREDNISolone 125MG 2ML VIAL IV PRN
[2024-03-10 11:20] VITALS: BP 124/63; O2SAT 100
[2024-03-10] MEDS: IRON SUCROSE 300 MG in NS 250 ML OVER 90 MIN. IV ONE (11:54)
[2024-03-10 13:55] VITALS: BP 124/60; O2SAT 100
== END 2024-03-10 13:55 ==
LOC: M INFU 11:08
PROVIDERS: ATTEND Physician Assistant Medical
DX: D50.9 Iron deficiency anemia, unspecified (principal)
CPT/HCPCS: 96365; 96366; J1756

== ENCOUNTER 2024-03-17 11:25 | Outpatient (CLI) | payer BC ==
[~2024-03-17] VITALS: Ht 170.2 cm; Wt 91.0 kg
[2024-03-17 11:25] VITALS: BP 133/72; O2SAT 98
[~2024-03-17 11:25] MED LIST changes: -ACETAMINOPHEN 650 MG PO ONE; -diphenhydrAMINE 25MG CAP PO ONE
[2024-03-17] MEDS: ACETAMINOPHEN 650 MG PO ONE (11:33)
[2024-03-17] MEDS: diphenhydrAMINE 25MG CAP PO ONE (11:33)
[2024-03-17] MEDS: IRON SUCROSE 300 MG in NS 250 ML OVER 90 MIN. IV ONE (11:48)
[2024-03-17 13:28] VITALS: BP 129/75; O2SAT 97
== END 2024-03-17 13:30 ==
LOC: M INFU 11:25
PROVIDERS: ATTEND Physician Assistant Medical
DX: D50.9 Iron deficiency anemia, unspecified (principal)
CPT/HCPCS: 96365; 96366; J1756

== ENCOUNTER → 2024-04-07 | Outpatient (CLI) | payer BC ==
[2024-04-07 12:26] LABS: BASO % 0.5 % (0.0-1.0); EOS # 0.1 10^3/uL (0.0-0.5); EOS % 1.2 % (0.0-3.0); HEMATOCRIT 39.8 % (36.0-47.0); HEMOGLOBIN 12.7 g/dl (12.0-15.5); LYMPH % 45.8 % (24.0-44.0); MEAN CORPUSCULAR HEMOGLOBIN 28.8 pg (27.0-33.0); MEAN CORPUSCULAR HGB CONC 31.9 g/dl (32.0-36.5); MEAN CORPUSCULAR VOLUME 90.2 fl (80.0-96.0); MONO # 0.4 10^3/uL (0.0-0.8); MONO % 6.1 % (2.0-8.0); NEUTROPHILS % 45.9 % (36.0-66.0); PLATELET COUNT, AUTOMATED 273 10^3/uL (150-450); RED BLOOD COUNT 4.41 10^6/uL (4.00-5.40); WHITE BLOOD COUNT 6.6 10^3/uL (4.0-10.0)
[2024-04-07 12:30] LABS: CALCIUM LEVEL 8.9 MG/DL (8.5-10.1)
[2024-04-07 12:31] LABS: PTH INTACT 80.2 PG/ML (18.5-88.0)
[2024-04-07 12:34] LABS: FERRITIN 26.5 NG/ML (7.3-270.7)
[2024-04-07 12:35] LABS: TOTAL 25(OH) VITAMIN D 20.4 NG/ML (20.0-100.0)
== END ==
LOC: M PLALAB 07:19
PROVIDERS: ATTEND Physician Assistant Medical
DX: E55.9 Vitamin D deficiency, unspecified (principal)

== ENCOUNTER 2024-04-29 07:38 | Outpatient (CLI) | payer BC ==
[~2024-04-29] VITALS: Ht 165.1 cm; Wt 91.0 kg
[2024-04-29 07:49] VITALS: BP 150/70; O2SAT 98
[2024-04-29] MEDS: IRON SUCROSE 400 MG in NS 250 ML OVER 2.5 HRS IV ONE (08:49)
[2024-04-29] MEDS: diphenhydrAMINE 25MG PO PRIOR TO INFUSION PO ONE (08:49)
[2024-04-29] MEDS: ACETAMINOPHEN 650MG PO PRIOR TO INFUSION PO ONE (08:49)
[2024-04-29 11:25] VITALS: BP 107/68; O2SAT 100
== END 2024-04-29 11:40 | disposition home or self-care (01) ==
LOC: M INFU 07:38
PROVIDERS: ATTEND Physician Assistant Medical
DX: D50.9 Iron deficiency anemia, unspecified (principal)
CPT/HCPCS: 96365; 96366; J1756

== ENCOUNTER → 2024-05-05 | Outpatient (CLI) | payer BC ==
[2024-05-05 19:09] LABS: BASO % 0.2 % (0.0-1.0); EOS % 0.2 % (0.0-3.0); HEMATOCRIT 43.2 % (36.0-47.0); HEMOGLOBIN 13.8 g/dl (12.0-15.5); LYMPH # 0.5 10^3/uL (1.5-5.0); LYMPH % 8.1 % (24.0-44.0); MEAN CORPUSCULAR HEMOGLOBIN 29.5 pg (27.0-33.0); MEAN CORPUSCULAR HGB CONC 31.9 g/dl (32.0-36.5); MEAN CORPUSCULAR VOLUME 92.3 fl (80.0-96.0); MONO # 0.3 10^3/uL (0.0-0.8); MONO % 4.1 % (2.0-8.0); NEUTROPHILS # 5.7 10^3/uL (1.5-8.5); NEUTROPHILS % 86.9 % (36.0-66.0); PLATELET COUNT, AUTOMATED 244 10^3/uL (150-450); RED BLOOD COUNT 4.68 10^6/uL (4.00-5.40); WHITE BLOOD COUNT 6.5 10^3/uL (4.0-10.0)
[2024-05-05 19:29] LABS: ALBUMIN 3.6 G/DL (3.2-5.2); ALKALINE PHOSPHATASE 89 U/L (35-104); ALT/SGPT 25 U/L (7.0-40); AST/SGOT 20 U/L (<34); BILIRUBIN,TOTAL 0.8 MG/DL (0.3-1.2); BLOOD UREA NITROGEN 14 MG/DL (9-23); CALCIUM LEVEL 8.6 MG/DL (8.5-10.1); CARBON DIOXIDE LEVEL 25 MMOL/L (20-31); CHLORIDE LEVEL 107 MMOL/L (98-107); CREATININE FOR GFR 0.65 MG/DL (0.55-1.30); GLOMERULAR FILTRATION RATE > 60.0 (>58); GLUCOSE, FASTING 96 MG/DL (60-100); IRON (FE) 42 UG/DL (50-170); POTASSIUM SERUM 4.6 MMOL/L (3.5-5.1); SODIUM LEVEL 140 MMOL/L (136-145); TOTAL PROTEIN 6.8 G/DL (5.7-8.2)
[2024-05-05 19:32] LABS: FERRITIN 161.1 NG/ML (7.3-270.7); VITAMIN B12 LEVEL 233 PG/ML (211-911)
[2024-05-06 17:54] LABS: PTH INTACT 133.2 PG/ML (18.5-88.0)
== END ==
LOC: M PLALAB 15:33
PROVIDERS: ATTEND Physician Assistant Medical
DX: Z98.84 Bariatric surgery status (principal)

== ENCOUNTER → 2024-05-10 | Outpatient (CLI) | payer BC | LOC: M PLALAB 11:27 | PROVIDERS: ATTEND Physician Assistant Medical | DX: Z91.89 Other specified personal risk factors, not elsewhere classified (principal) ==

== ENCOUNTER → 2024-06-21 | Outpatient (CLI) | payer BC ==
[2024-06-21 13:01] LABS: BASO % 0.3 % (0.0-1.0); EOS % 0.3 % (0.0-3.0); HEMATOCRIT 44.8 % (36.0-47.0); HEMOGLOBIN 14.7 g/dl (12.0-15.5); LYMPH # 1.9 10^3/uL (1.5-5.0); MEAN CORPUSCULAR HEMOGLOBIN 30.2 pg (27.0-33.0); MEAN CORPUSCULAR HGB CONC 32.8 g/dl (32.0-36.5); MEAN CORPUSCULAR VOLUME 92.2 fl (80.0-96.0); MONO # 0.3 10^3/uL (0.0-0.8); MONO % 4.7 % (2.0-8.0); NEUTROPHILS # 4.2 10^3/uL (1.5-8.5); NEUTROPHILS % 65.4 % (36.0-66.0); PLATELET COUNT, AUTOMATED 289 10^3/uL (150-450); RED BLOOD COUNT 4.86 10^6/uL (4.00-5.40); WHITE BLOOD COUNT 6.4 10^3/uL (4.0-10.0)
[2024-06-21 13:14] LABS: INR 0.98; PROTHROMBIN TIME 13.3 SECONDS (12.5-14.5)
[2024-06-21 13:38] LABS: THYROID STIMULATING HORMONE 0.751 uIU/ML (0.55-4.78)
[2024-06-21 14:17] LABS: HEPATITIS B CORE ANTIBODY IGM NEGATIVE (NEGATIVE); HEPATITIS C VIRUS ABY INDEX 0.04 INDEX (<0.8)
[2024-06-22 12:12] LABS: HEPATITIS A IgG TOTAL NON-REACTIVE (NON-REACTIVE); HEPATITIS B CORE ANTIBODY IGG NON-REACTIVE (NON-REACTIVE)
== END ==
LOC: M LAB 10:37 → M SLEEP HO 10:37
PROVIDERS: ATTEND Physician Assistant Medical
DX: E66.812 Obesity, class 2 (principal)

== ENCOUNTER → 2025-01-05 | Outpatient (REF) | payer BC, OTHER ==
[2025-01-05 17:58] LABS: APPEARANCE, URINE CLOUDY (CLEAR); BACTERIA, URINE AUTO 1+ (NEGATIVE); BILIRUBIN, URINE AUTO NEGATIVE (NEGATIVE); BLOOD, URINE BLOOD NEGATIVE (NEGATIVE); GLUCOSE, URINE (UA) AUTO NEGATIVE (NEGATIVE); KETONE, URINE AUTO NEGATIVE (NEGATIVE); LEUKOCYTE ESTERASE, URINE AUTO NEGATIVE (NEGATIVE); MUCUS, URINE SMALL (NEGATIVE); NITRITE, URINE AUTO NEGATIVE (NEGATIVE); PROTEIN, URINE AUTO NEGATIVE (NEGATIVE); RBC, URINE AUTO 6 /HPF (0-3); SPECIFIC GRAVITY URINE AUTO 1.013 (1.002-1.035); SQUAMOUS EPITHELIAL CELL UR AU 5 /HPF (0-6); UROBILINOGEN, URINE AUTO 0.2 mg/dL (0.0-2.0); WBC, URINE AUTO 15 /HPF (0-3)
== END ==
LOC: M SFHCPLAZ 15:30
PROVIDERS: ATTEND Physician Assistant Medical
DX: R35.0 Frequency of micturition (principal)

== ENCOUNTER → 2025-03-01 | Outpatient (REF) | payer BC ==
[2025-03-01 17:35] LABS: BASO # 0.0 10^3/uL (0.0-0.2); BASO % 0.4 % (0.0-1.0); EOS # 0.1 10^3/uL (0.0-0.5); EOS % 0.8 % (0.0-3.0); LYMPH # 2.7 10^3/uL (1.5-5.0); LYMPH % 38.3 % (24.0-44.0); MONO # 0.5 10^3/uL (0.0-0.8); MONO % 6.3 % (2.0-8.0); NEUTROPHILS # 3.8 10^3/uL (1.5-8.5); NEUTROPHILS % 53.8 % (36.0-66.0); PLATELET COUNT, AUTOMATED 311 10^3/uL (150-450)
[2025-03-01 17:40] LABS: ALT/SGPT 11 U/L (7.0-40); AST/SGOT 15 U/L (<34); CALCIUM LEVEL 9.0 MG/DL (8.5-10.1); CARBON DIOXIDE LEVEL 28 MMOL/L (20-31); CHLORIDE LEVEL 103 MMOL/L (98-107); CHOLESTEROL LEVEL 159 MG/DL (<200); CHOLESTEROL RISK RATIO 2.24 (<5); CREATININE FOR GFR 0.69 MG/DL (0.55-1.30); GLOMERULAR FILTRATION RATE > 90.0 (>58); IRON (FE) 107 UG/DL (50-170); LDL CHOLESTEROL 72.5 MG/DL (<100); LUTEINIZING HORMONE 23.9 mIU/ML; NON-HDL-C 88.1 MG/DL; POTASSIUM SERUM 4.5 MMOL/L (3.5-5.1); SODIUM LEVEL 139 MMOL/L (136-145); TOTAL 25(OH) VITAMIN D 26.5 NG/ML (20.0-100.0); TRIGLYCERIDES LEVEL 78 MG/DL (<150)
[2025-03-01 17:41] LABS: FREE T4 1.19 NG/DL (0.89-1.76)
[2025-03-01 17:42] LABS: VITAMIN B12 LEVEL 818 PG/ML (211-911)
[2025-03-01 17:43] LABS: ESTIMATED AVERAGE GLUCOSE 85.0 MG/DL (60-110)
== END ==
LOC: M SFHCADAM 12:10
PROVIDERS: ATTEND Physician Assistant Medical
DX: N95.1 Menopausal and female climacteric states (principal); Z98.84 Bariatric surgery status; E66.812 Obesity, class 2; Z13.220 Encounter for screening for lipoid disorders; Z13.1 Encounter for screening for diabetes mellitus; E03.8 Other specified hypothyroidism